=== PATIENT | female | born 1950 | race Caucasian/White ===

== ENCOUNTER 2019-02-19 19:16 | Emergency (ER) | payer MEDICARE ==
[~2019-02-19] VITALS: Ht 170.2 cm; Wt 90.7 kg
[2019-02-19] MEDS ORDERED: Percocet 5-3251 EACH PO (20:48)
[2019-02-19] MEDS ORDERED: Indomethacin50 MG PO (20:48)
== END 2019-02-19 21:18 | disposition home or self-care (01) ==
LOC: ER 19:16
DX: M79.89 Other specified soft tissue disorders (principal); Z88.2 Allergy status to sulfonamides; Z88.5 Allergy status to narcotic agent; F17.200 Nicotine dependence, unspecified, uncomplicated
CPT/HCPCS: 73630; 99283-25; A9270-GY